=== PATIENT | female | born 1940 ===

== ENCOUNTER 2017-10-16 08:07 | Day surgery (SDC) | payer MEDICARE, OTHER ==
[~2017-10-16] VITALS: Ht 154.9 cm; Wt 41.5 kg
[2017-10-16] MEDS ORDERED: CALCIUM500 MG PO (08:21)
[2017-10-16] MEDS ORDERED: ASPIR-LOW81 MG PO (08:21)
[2017-10-16] MEDS ORDERED: VITAMIN B COMP1 EACH PO (08:21)
[2017-10-16] MEDS ORDERED: VITAMIN D2000 UNI1 PO (08:22)
== END 2017-10-16 10:43 | disposition home or self-care (01) ==
LOC: OPS 08:07 → DSVR 08:07 → DS 09:15 → OPS 10:43
PROVIDERS: Ophthalmology
PROC: 08RJ3JZ Replacement of Right Lens with Synthetic Substitute, Percutaneous Approach (ICD-10-PCS; principal; 2017-10-16 09:15)
DX: H25.89 Other age-related cataract (principal); F41.9 Anxiety disorder, unspecified; F03.90 Unspecified dementia, unspecified severity, without behavioral disturbance, psychotic disturbance, mood disturbance, and anxiety; Z79.82 Long term (current) use of aspirin; Z79.899 Other long term (current) drug therapy
CPT/HCPCS: J3010; J3301

== ENCOUNTER 2017-10-30 08:26 | Day surgery (SDC) | payer MEDICARE, OTHER ==
[~2017-10-30] VITALS: Ht 154.9 cm; Wt 41.5 kg
[~2017-10-30 08:26] MED LIST: ASPIR-LOW81 MG PO; CALCIUM500 MG PO; VITAMIN B COMP1 EACH PO; VITAMIN D2000 UNI1 PO
== END 2017-10-30 11:45 | disposition home or self-care (01) ==
LOC: OPS 08:26 → DSVR 08:26 → OPS 09:45 → DS 09:45 → OPS 11:45
PROVIDERS: Ophthalmology
PROC: 08RK3JZ Replacement of Left Lens with Synthetic Substitute, Percutaneous Approach (ICD-10-PCS; principal; 2017-10-30 09:45)
DX: H25.89 Other age-related cataract (principal); Z79.82 Long term (current) use of aspirin; Z79.899 Other long term (current) drug therapy
CPT/HCPCS: J2250